=== PATIENT | male | born 1955 | race Hispanic/Latino ===

== ENCOUNTER 2024-10-18 05:53 | Day surgery (SDC) | payer MEDICARE ==
[2024-10-16 11:21] VITALS: BP 140/76; PULSE 65; RESP 18; TEMP 98.2
[2024-10-16 11:29] LABS: BASOPHILS # (AUTO) 0.05 K/uL (0.00-0.20); BASOPHILS % (AUTO) 0.7 % (0.0-5.0); EOSINOPHILS # (AUTO) 0.24 K/uL (0.00-0.70); EOSINOPHILS % (AUTO) 3.5 % (0.0-8.0); HEMATOCRIT 46.5 % (42-54); IMMATURE GRANULOCYTE ABSOLUTE 0.01 K/uL (0-1); LYMPHOCYTES # (AUTO) 2.4 K/uL (1.0-4.8); MEAN CORPUSCULAR HEMOGLOBIN 29.9 pg (27.0-33.0); MEAN CORPUSCULAR VOLUME 93.2 fL (79-99); MONOCYTES # (AUTO) 0.5 K/uL (0.1-1.0); MONOCYTES % (AUTO) 6.7 % (3.0-13.0); NEUTROPHILS # (AUTO) 3.7 K/uL (1.8-7.7); PLATELET COUNT (AUTO) 175 K/uL (130-400); RED BLOOD CELL COUNT(AUTO) 4.99 MIL/uL (4.50-6.20); RED CELL DISTRIBUTION WIDTH 13.7 % (11.0-15.5); WHITE BLOOD COUNT (AUTO) 6.9 K/uL (4.8-10.8)
[2024-10-16 11:31] LABS: APPEARANCE,URINE CLEAR (CLEAR); BILIRUBIN,URINE NEGATIVE (NEGATIVE); COLOR,URINE LIGHT-YELLOW (YELLOW); GLUCOSE, URINE (UA) NEGATIVE (NEGATIVE); KETONES,URINE NEGATIVE (NEGATIVE); LEUKOCYTE ESTERASE ,URINE NEGATIVE Leu/uL (NEGATIVE); NITRATE,URINE NEGATIVE (NEGATIVE); OCCULT BLOOD,URINE NEGATIVE (NEGATIVE); PROTEIN,URINE NEGATIVE (NEGATIVE); UROBILINOGEN,URINE 0.2 mg/dL (0.2-1.0)
[2024-10-16 11:33] LABS: ADD UA MICROSCOPIC NO
[2024-10-16 11:37] LABS: CREATININE 0.8 mg/dL (0.5-1.3); POTASSIUM 4.9 mmol/L (3.5-5.1)
[2024-10-16 11:40] LABS: PROTHROMBIN TIME 10.6 SEC (9.6-11.6)
[2024-10-16 11:41] LABS: PARTIAL THROMBOPLASTIN TIME 29.1 SEC (26.3-35.5)
--- NOTE | 2024-10-16 11:47 | EKG ---
[facility] Test Date: 2024-10-16 Test Time: 11:10:18 Pat Name: HANSA WEI Department: [facility] Room: Gender: M Network Intern: [id number] : 1955 Requested By: Jamari DUEÑAS Order Number: [id number] Reading MD: Kevin Amaya Measurements Intervals [place] Rate: 65 P: 51 IN: 150 QRS: 84 QRSD: 113 T: 122 QT: 480 QTc: 502 Interpretive Statements Sinus rhythm Evolving anterior infarct Abnormal T, consider ischemia, lateral leads Prolonged QT interval No previous ECG available for comparison Electronically Signed On 10-17-2024 23:25:38 CDT by Kevin Amaya Please click the below link to view image of tracing.
[2024-10-16 11:53] LABS: B-TYPE NATRIURETIC PEPTIDE 105 pg/mL (0-100)
--- NOTE | 2024-10-16 12:41 | HMCIMG ---
Exam Type: CHEST 1VW Clinical Information: PREOP Comparison: None Findings: Old healed right midclavicular fracture seen. The lungs are clear of infiltrates. The heart is normal in size. The bony and soft tissue structures of the chest are unremarkable. Impression: Clear lungs.
[2024-10-18] VITALS (11 sets, daily range): BP systolic 104–129; BP diastolic 60–85; PULSE 50–65; RESP 12–16; TEMP 97–97.9
[~2024-10-18] VITALS: Ht 165.1 cm; Wt 77.1 kg
[~2024-10-18 05:53] MED LIST: AEC81 PO; CLOP75TA32 PO
[2024-10-18] MEDS: 0.9%NACL 1000ML 1,000 ML IV SCH (06:36)
[2024-10-18] MEDS ORDERED: LIDOCAINE HCL 1% MDV 50ML VIAL ONE (07:20)
[2024-10-18] MEDS ORDERED: HEParin-NS 1,000 UNIT/500 ML 1,000 ML IV ONE (07:21)
[2024-10-18] MEDS ORDERED: IODIXANOL 320 MG/ML 100 ML VIAL ONE ×2 (07:21→07:23)
[2024-10-18] MEDS ORDERED: SODIUM BICARB 50MEQ 50ML VIAL 50 ML ONE (07:21)
[2024-10-18] MEDS ORDERED: VERAPAMIL HCL 2.5 MG/ML VIAL ONE (07:21)
[2024-10-18] MEDS ORDERED: NITROGLYCERIN 50MG VIAL ONE (07:22)
[2024-10-18] MEDS ORDERED: niCARDIpine 25MG INJ IV ONE (07:23)
[2024-10-18] MEDS ORDERED: LIDOCAINE HCL 400MG/20ML VIAL ONE (07:25)
[2024-10-18] MEDS ORDERED: FENTanyl CITRate PF 50 MCG/1 ML 2ML VIAL ONE (07:38)
[2024-10-18] MEDS ORDERED: MIDAZOLAM HCL 1 MG/ML 2ML VIAL ONE (07:38)
[2024-10-18] MEDS ORDERED: IOHEXOL-350 50ML VIAL IV ONE (08:03)
[2024-10-18] MEDS ORDERED: 0.9%NACL 1000ML 1,000 ML IV SCH (09:00)
--- NOTE | 2024-10-18 09:21 | CCATH ---
PROCEDURES: * Left heart catheterization. * Left ventriculogram. * Selective right and left coronary arteriogram. * Selective right and left carotid angiogram. * Conscious sedation for 60 minutes. INDICATIONS: * Anterior wall IL. * Ischemic cardiomyopathy. * Carotid stenosis with discrepancy between the carotid duplex scan and the CT carotid angiography. COMPLICATIONS: None. TOTAL CONTRAST: 105 mL. DESCRIPTION OF PROCEDURE: The patient was taken to the cardiac catheterization lab after appropriate operative consents were signed. He was prepped and draped in the usual fashion. After the conscious sedation was administered, the right common femoral artery region was infiltrated with 2% Xylocaine without epinephrine. A 6-Uzbek sheath was advanced after cannulation of the vessel. This was done in a modified Seldinger technique in a retrograde approach. At this point, an FL4 6-Uzbek catheter was advanced and selectively engaged in the ostium of the left main. Imaging was obtained in multiplane. The left main was a short in course, but normal in caliber and was free of stenotic lesions. It bifurcated into LAD, the circumflex. Circumflex coronary artery was a moderately large vessel that gave rise to a tiny obtuse marginal 1 and a large branching OM2 and an ongoing tiny circ. The circ system was free of disease. The LAD was a moderately sized vessel in its proximal portion, gave rise to the first diagonal and then was 100% occluded after the first diagonal and septal perforators. There was minimal antegrade flow and a small under-perfused vessel distally. The catheter was withdrawn and an FR4 6-Uzbek catheter was advanced and selectively engaged in the ostium of the right coronary artery. This was imaged in multiplane. This was a large vessel that was free of significant stenosis. It gave rise to an acute marginal, the PDA, and PLVB. There were no atherosclerotic lesions in the right coronary artery. At this point, the pigtail catheter was advanced and placed in the left ventricular cavity. Left ventricular end-diastolic pressure measurement was obtained. Ventriculography was performed in the FOUNTAIN projection, documenting an EF in the 35% range. The entire anterior apical and apical segment of the left ventricle was akinetic and there was suggestion of an apical mural thrombus by ventriculography. The patient had 1+ MR. There was no aortic stenosis on pullback. At this point, the right coronary artery catheter was then selected and engaged in the ostium of the right common carotid artery. Imaging was obtained in multiplane. This was done with digital acquisition. The right common carotid artery was normal. The right external carotid artery was normal. The right internal carotid artery had a tubular 50-60% lesion in the proximal portion. The intracerebral circulation was normal with normal anterior cerebral and middle cerebral arteries. The catheter was then withdrawn and engaged in the left common carotid artery. This was imaged in multiplane with digital acquisition. The left common carotid artery was normal. The left external carotid artery was normal. The left internal carotid artery had a 20% stenotic lesion. The left intracerebral circulation was normal with adequate flow to the left middle and anterior cerebral arteries. At this point, the procedure was completed. Perclose was utilized with good hemostasis. The patient tolerated it well and left the cardiac catheterization lab in stable condition. FINAL IMPRESSION: * Severe coronary artery disease with chronic total occlusion of the mid left anterior descending with an anterior apical akinetic segment. * Ejection fraction of 35% with a probable apical mural thrombus. * Normal right coronary artery and circumflex systems. * 1+ mitral regurgitation. * Moderate right carotid stenosis. PLAN: Continue medical management. The patient will have an echocardiogram and possible DOV to assess the possibility of an apical mural thrombus. He will be maintained on antiplatelet therapy. Coreg will be started at a low dose. I am reluctant to initiate afterload reducing agents at this time given the fact that the patient has marginal pressures. We will assess his response to the beta blockers. We will consider full anticoagulation after the echocardiogram has been obtained. The patient may benefit from an AICD after 90 days of guideline-directed medical therapy. TID: [id number] RECEIPT: [id number]
--- NOTE | 2024-10-19 07:51 | HMCSR ---
APPROVED REPORT EXAM: Two-dimensional and M-mode echocardiogram with Doppler and color Doppler. INDICATION ICD: Anterior wall Myocardial Infarction 2D Dimensions RVDd4.4 cmLA (2D)3.4 (1.6-4.0cm)LVED Vol(simp.)117.2 mL IVSd0.8 (0.7-1.1cm)LVOT diam1.9 (1.8-2.4cm)LVES Vol(simp.)71.4 mL LVDd5.2 (3.8-5.6cm)IVC diam1.0 cmLVEF(%, simp.)39 % PWd0.9 (0.7-1.1cm)LA ESV INDEX (BP)36.37 mL/m2 IVSs0.9 cm LVDs3.7 (2.5-4.0cm) PWs1.5 cm Deformation Strain Apical 4-10.0 % Apical 2-9.0 % Apical 3-10.0 % Global Strain-10.0 % M-Mode Dimensions EPSS0.9 cm LA (MM)3.8 (1.6-4.0cm) Ao Root(MM)3.3 (2.0-3.7cm) Aortic Valve AoV Vmax0.8 m/Yoshi Peak GR2.7 mmHgLVOT Vmax0.7 m/s AoV VTI0.2 mAo Mean GR1.5 mmHgLVOT VTI0.16 m ZOYA (VMAX)2.7 cm2AVA (VTI) 2.7 cm2 Mitral Valve MV E Vmax78.4 cm/sDECEL Ejes754 ms MV A Vmax64.2 cm/sP 1/2 T26 ms E/A ratio1.2MVA (PHT)8.4 cm2 TDI E/E' Lmeunc04.1E/E' Lateral7.8 Medial E' Peak V6.00 cm/sLateral E' Peak V10.00 cm/s Pulmonary Valve PV Vmax0.6 m/s Tricuspid Valve TR Vmax2.5 m/sRAP (EST) 3 yhMkBWAC91.5 mmHg TR Peak GR24.5 mmHg Left Ventricle The left ventricle is normal size. Apical akiesis to dyskinesis. There is normal left ventricular wal l thickness. LVEF is 35%. Probable sessile apical thrombus is present. The left ventricular diastolic function is normal. Right Ventricle The right ventricle is normal size. The right ventricular systolic function is normal. Atria The left atrium size is normal. The right atrium size is normal. Aortic Valve The aortic valve is mildly to moderately thickened. No aortic regurgitation is present. There is no a ortic valvular stenosis. Mitral Valve The mitral valve is normal in structure. There is trace of mitral valve regurgitation noted. There is no mitral valve stenosis. Tricuspid Valve The tricuspid valve is normal in structure. There is trace of tricuspid valve regurgitation noted. Pulmonic Valve The pulmonary valve is normal in structure. There is trace of pulmonic valvular regurgitation. Great Vessels The aortic root is normal in size. The IVC is normal in size and collapses >50% with inspiration. Pericardium There is a small loculated posterior pericardial effusion. No echo indications of pericardial tampona de. Other Information Quality : Adequate Conclusion The left ventricle is normal size. LVEF is 35%. Apical akiesis to dyskinesis. Probable sessile apical thrombus is present. The right ventricular systolic function is normal. The left atrium size is normal. The aortic valve is mildly to moderately thickened. No aortic regurgitation is present. There is no aortic valvular stenosis. The mitral valve is normal in structure. There is trace of mitral valve regurgitation noted. There is no mitral valve stenosis. There is trace of tricuspid valve regurgitation noted. There is trace of pulmonic valvular regurgitation. The aortic root is normal in size. The IVC is normal in size and collapses >50% with inspiration. There is a small loculated posterior pericardial effusion. No echo indications of pericardial tamponade.
== END 2024-10-18 13:25 | disposition home or self-care (01) ==
LOC: DAH 05:53
PROVIDERS: ATTEND Internal Medicine Cardiovascular Disease
DX: I21.09 ST elevation (STEMI) myocardial infarction involving other coronary artery of anterior wall (principal); I25.5 Ischemic cardiomyopathy; I25.10 Atherosclerotic heart disease of native coronary artery without angina pectoris; I31.39 Other pericardial effusion (noninflammatory); I65.21 Occlusion and stenosis of right carotid artery; I08.1 Rheumatic disorders of both mitral and tricuspid valves; E66.9 Obesity, unspecified; Z79.899 Other long term (current) drug therapy; Z79.82 Long term (current) use of aspirin; Z83.3 Family history of diabetes mellitus; Z82.49 Family history of ischemic heart disease and other diseases of the circulatory system; Z98.890 Other specified postprocedural states; Z96.659 Presence of unspecified artificial knee joint; Z68.27 Body mass index [BMI] 27.0-27.9, adult
CPT/HCPCS: 80048; 83880; 85025; 85610; 85730; 81003; 36415; 71045; 93005; 93458; 36223; 93306; 93356; C1894; C1760; J3010; J3490 ×3; J7030; J2250; J1644; Q9967 ×2; A4215; A4222; A4221; A4663; A4216; A4606; A4223 ×3; 96360; 96361; 99156; 99157

== ENCOUNTER → 2025-04-23 | Outpatient (CLI) | payer MEDICARE ==
--- NOTE | 2025-04-24 07:36 | HMCSR ---
APPROVED REPORT EXAM: Two-dimensional and M-mode echocardiogram with Doppler and color Doppler. INDICATION ICD: Essential (primary) Hypertension I10.0 2D Dimensions RVDd4.0 cmLVEF(%)65.1 (>50%)LVED Vol(simp.)95.2 mL IVSd0.8 (0.7-1.1cm)FS(%)35 %LVES Vol(simp.)39.1 mL LVDd4.3 (3.8-5.6cm)LA (2D)3.9 (1.6-4.0cm)LVEF(%, simp.)59 % PWd0.8 (0.7-1.1cm)Ao Root(2D)3.2 (2.0-3.7cm)LA ESV INDEX (BP)14.83 mL/m2 LVDs2.8 (2.5-4.0cm)LVOT diam2.0 (1.8-2.4cm) IVC diam1.5 cm M-Mode Dimensions EPSS0.6 cm LA (MM)3.7 (1.6-4.0cm) Ao Root(MM)3.6 (2.0-3.7cm) Aortic Valve AoV Vmax1.1 m/Yoshi Peak GR4.9 mmHgLVOT Vmax1.1 m/s AoV VTI0.2 mAo Mean GR2.9 mmHgLVOT VTI0.22 m ZOYA (VMAX)3.15 cm2AVA (VTI) 3.6 cm2 Mitral Valve MV E Vmax62.1 cm/sDECEL Kwfc012 ms MV A Vmax65.3 cm/sP 1/2 T61 ms E/A ratio1.0MVA (PHT)3.6 cm2 TDI E/E' Gpnbzh74.3E/E' Lateral6.9 Medial E' Peak V5.52 cm/sLateral E' Peak V8.94 cm/s Pulmonary Valve PV Vmax1.1 m/sPV VTI0.25 mPV Mean GR2.7 mmHg PV Peak GR5.0 mmHg Tricuspid Valve TR Vmax2.5 m/sRVSP25.3 mmHg TR Peak GR25.3 mmHg Left Ventricle The left ventricle is normal size. Distal septal and apical hypokinesis. There is normal left ventric ular wall thickness. LVEF is 45-50%. No left ventricle thrombus noted on this study. The left ventric ular diastolic function is normal. Right Ventricle The right ventricle is normal size. The right ventricular systolic function is normal. Atria The left atrium size is normal. The right atrium size is normal. Aortic Valve The aortic valve is normal in structure. No aortic regurgitation is present. There is no aortic valvu lar stenosis. Mitral Valve The mitral valve is normal in structure. Mitral regurgitation is trace. There is no mitral valve sten osis. Tricuspid Valve The tricuspid valve is normal in structure. There is no tricuspid valve regurgitation noted. Pulmonic Valve The pulmonary valve is normal in structure. There is no pulmonic valvular regurgitation. Great Vessels The aortic root is normal in size. The IVC is normal in size and collapses >50% with inspiration. Pericardium There is no pericardial effusion. Conclusion The left ventricle is normal size. There is normal left ventricular wall thickness. LVEF is 45-50%. The left ventricular diastolic function is normal. Distal septal and apical hypokinesis. The right ventricle is normal size. The left atrium size is normal. The aortic valve is normal in structure. No aortic regurgitation is present. There is no aortic valvular stenosis. The mitral valve is normal in structure. Mitral regurgitation is trace. There is no mitral valve stenosis. There is no tricuspid valve regurgitation noted. There is no pulmonic valvular regurgitation. The aortic root is normal in size. The IVC is normal in size and collapses >50% with inspiration. There is no pericardial effusion.
== END | disposition home or self-care (01) ==
LOC: RAH 12:55
PROVIDERS: ATTEND Internal Medicine Cardiovascular Disease
DX: I10 Essential (primary) hypertension (principal); D45 Polycythemia vera
CPT/HCPCS: 93306